=== PATIENT | male | born 1940 | race Caucasian/White ===

== ENCOUNTER 2020-04-26 04:07 | Inpatient (IN) ==
[2020-04-26] MEDS ORDERED: Naloxone 0.4 MG/ML INJ IVP PRN (12:17)
[2020-04-26] MEDS ORDERED: Ondansetron 4 MG/2 ML VIAL IVP PRN (12:17)
[2020-04-26] MEDS ORDERED: 0.9 % Sodium Chloride 250 ML IVC SCH (12:30)
[2020-04-26 14:52] LABS: ABG Base Excess -6 mEq/L (-2 to 3); ABG HCO3 21 mEq/L (21-27); ABG Oxygen Saturation 98 % (95-98); ABG PCO2 45 mmHg (35-45); ABG PH 7.28 pH Units (7.32-7.45); ABG PO2 117 mmHg (85-104); ABG TCO2 22 mEq/L (20-26)
[2020-04-26 16:01] LABS: Basophils % 0.3 %; Eosinophils # 0.1 K/mcL (0.0-0.6); Eosinophils % 0.9 %; Hematocrit 26.2 % (37.5-50.1); Hemoglobin 8.3 g/dL (12.9-16.9); Immature Granulocytes % 1.1 % (0-4); Lymphocytes # 0.3 K/mcL (0.6-4.6); Lymphocytes % 2.4 %; Mean Corpuscular HGB Conc 31.7 g/dL (31.6-35.5); Mean Corpuscular Hemoglobin 29.9 pg (28.0-33.3); Mean Corpuscular Volume 94.2 fL (83.0-100.0); Mean Platelet Volume 9.3 fL (9.4-12.4); Monocytes # 0.4 K/mcL (0.0-1.3); Monocytes % 3.9 %; Neutrophils # 9.5 K/mcL (1.6-8.9); Platelet Count 134 K/mcL (140-400); Red Blood Count 2.78 M/mcL (4.19-5.50); Red Cell Distribution Width 15.9 % (11.5-14.5); Segmented Neutrophils % 91.4 %; White Blood Count 10.4 K/mcL (4.3-11.1)
[2020-04-26 16:29] LABS: INR 1.2; Prothrombin Time 13.9 Seconds (9.4-12.1)
[2020-04-26 16:41] LABS: Alanine Aminotransferase 9 Units/L (7-52); Albumin 2.3 g/dL (3.5-5.7); Albumin/Globulin Ratio 1.5 (1.1-2.2); Alkaline Phosphatase 31 Units/L (34-104); Aspartate Amino Transferase 11 Units/L (13-39); Bilirubin,Total 0.4 mg/dL (0.3-1.0); Blood Urea Nitrogen > 130 mg/dL (8-23); Calcium 8.6 mg/dL (8.6-10.3); Carbon Dioxide 19 mEq/L (23-29); Chloride 108 mEq/L (98-107); Globulin 1.5 g/dL (2.4-3.5); Glucose 118 mg/dL (70-105); Potassium 5.1 mEq/L (3.5-5.1); Sodium 142 mEq/L (136-145); Total Protein 3.8 g/dL (6.4-8.9); eGFR For African Americans 7 (> 60); eGFR For Non-African Americans 6 (> 60)
[2020-04-26 16:55] LABS: Hepatitis B Surface Antibody 7.89 mIU/mL
[2020-04-26 17:06] LABS: Hepatitis B Surface Antigen Nonreactive (Nonreactive)
[2020-04-26 18:32] LABS: RBC,Pleural Fluid < 2000 RBC/mcL
[2020-04-26 18:33] LABS: Lactate Dehydrogenase 158 Units/L (140-271)
[2020-04-26 18:57] LABS: LDH,Pleural Fluid 123 Units/L (No Ref Range); Total Protein,Pleural Fluid < 2.0 g/dL
[2020-04-26] MEDS ORDERED: Perit. Dialysis with Dex 2.5 % 12,000 ML PERITONEAL ONE (19:00)
[2020-04-26 19:43] LABS: Appearance of Pleural Fl Clear (Clear)
[2020-04-26 19:44] LABS: Basophils,Pleural Fluid 0 %
[2020-04-26] MEDS ORDERED: Melatonin 3 MG TABLET PO PRN (20:08)
[2020-04-26] MEDS: carvediloL 6.25 MG TABLET PO SCH (20:49)
[2020-04-26] MEDS: Mirtazapine 15 MG TABLET PO SCH (20:49)
[2020-04-26] MEDS: Pantoprazole 40 MG VIAL IVP SCH (20:49)
[2020-04-26] MEDS: *HR* Digoxin 0.125 MG TABLET PO SCH (20:49)
[2020-04-26] MEDS: rOPINIRole 0.25 MG TABLET PO SCH (20:50)
[2020-04-26] MEDS: traZODone 50 MG TABLET PO SCH (22:49)
[2020-04-26] MEDS: Acetaminophen 325 MG TABLET PO PRN (23:27)
[2020-04-27 03:51] LABS: Hematocrit 27.1 % (37.5-50.1); Hemoglobin 8.8 g/dL (12.9-16.9); Mean Corpuscular HGB Conc 32.5 g/dL (31.6-35.5); Mean Corpuscular Hemoglobin 30.1 pg (28.0-33.3); Mean Corpuscular Volume 92.8 fL (83.0-100.0); Mean Platelet Volume 9.6 fL (9.4-12.4); Platelet Count 137 K/mcL (140-400); Red Blood Count 2.92 M/mcL (4.19-5.50); Red Cell Distribution Width 16.1 % (11.5-14.5); White Blood Count 11.4 K/mcL (4.3-11.1)
[2020-04-27 04:09] LABS: Blood Urea Nitrogen > 130 mg/dL (8-23); Calcium 8.9 mg/dL (8.6-10.3); Carbon Dioxide 19 mEq/L (23-29); Chloride 108 mEq/L (98-107); Glucose 98 mg/dL (70-105); Magnesium 1.9 mg/dL (1.6-2.6); Potassium 5.9 mEq/L (3.5-5.1); Sodium 141 mEq/L (136-145); eGFR For African Americans 7 (> 60); eGFR For Non-African Americans 6 (> 60)
[2020-04-27] MEDS: Pantoprazole 40 MG VIAL IVP SCH ×2 (06:21→17:29)
[2020-04-27] MEDS ORDERED: Insulin Human Regular 10 UNIT in 0.9 % Sodium Chloride 10 ML IV ONE (07:32)
[2020-04-27] MEDS ORDERED: *HR* Propofol 200 MG/20 ML VIAL IVP ONE (07:36)
[2020-04-27] MEDS ORDERED: Lidocaine -MPF 2% 2 ML VIAL ONE (07:38)
[2020-04-27] MEDS ORDERED: *HR* Dextrose 50 % in Water (Vial) 50 ML VIAL IVP ONE (08:00)
[2020-04-27] MEDS: carvediloL 6.25 MG TABLET PO SCH (08:31)
[2020-04-27] MEDS: Calcium Gluconate 1gm/50mL 1 GM/50 ML BAG IVPB SCH ×2 (08:33→09:16)
[2020-04-27] MEDS: SODIUM ZIRCONIUM CYCLOSILICATE 5 GM POWD.PACK PO SCH (09:21)
[2020-04-27] MEDS ORDERED: Perflutren Lipid Microsphere 1.3 ML in 0.9 % Sodium Chloride 8.7 ML IVP PRN (09:53)
[2020-04-27] MEDS ORDERED: Perit. Dialysis with Dex 1.5 % 12,000 ML PERITONEAL ONE (19:00)
[2020-04-27] MEDS: rOPINIRole 0.25 MG TABLET PO SCH (20:46)
[2020-04-27] MEDS: Mirtazapine 15 MG TABLET PO SCH (20:47)
[2020-04-28] MEDS: traZODone 50 MG TABLET PO SCH ×2 (02:53→21:29)
[2020-04-28 05:06] LABS: Basophils % 0.3 %; Eosinophils # 0.2 K/mcL (0.0-0.6); Eosinophils % 1.7 %; Hemoglobin 8.1 g/dL (12.9-16.9); Immature Granulocytes % 1.2 % (0-4); Lymphocytes # 0.2 K/mcL (0.6-4.6); Lymphocytes % 1.5 %; Mean Corpuscular HGB Conc 32.4 g/dL (31.6-35.5); Mean Corpuscular Volume 92.6 fL (83.0-100.0); Mean Platelet Volume 9.8 fL (9.4-12.4); Monocytes # 0.5 K/mcL (0.0-1.3); Monocytes % 4.6 %; Neutrophils # 10.2 K/mcL (1.6-8.9); Platelet Count 169 K/mcL (140-400); Red Cell Distribution Width 15.9 % (11.5-14.5); Segmented Neutrophils % 90.7 %; White Blood Count 11.2 K/mcL (4.3-11.1)
[2020-04-28] MEDS: Pantoprazole 40 MG VIAL IVP SCH ×2 (05:19→17:56)
[2020-04-28 05:23] LABS: Blood Urea Nitrogen > 130 mg/dL (8-23); Calcium 8.1 mg/dL (8.6-10.3); Carbon Dioxide 21 mEq/L (23-29); Chloride 105 mEq/L (98-107); Glucose 142 mg/dL (70-105); Potassium 4.8 mEq/L (3.5-5.1); Sodium 139 mEq/L (136-145); eGFR For African Americans 8 (> 60); eGFR For Non-African Americans 6 (> 60)
[2020-04-28 05:24] LABS: Anisocytosis 1+ (Not Present); Platelet Estimate Normal (Normal)
[2020-04-28] MEDS: SODIUM ZIRCONIUM CYCLOSILICATE 5 GM POWD.PACK PO SCH (09:55)
[2020-04-28] MEDS: Metoprolol XL (24 HR) Succ 25 MG TAB.ER.24H PO SCH (11:49)
[2020-04-28] MEDS ORDERED: Perit. Dialysis with Dex 1.5 % 12,000 ML PERITONEAL ONE (19:00)
[2020-04-28] MEDS: Mirtazapine 15 MG TABLET PO SCH (21:26)
[2020-04-28] MEDS: rOPINIRole 0.25 MG TABLET PO SCH (21:26)
[2020-04-29 05:37] LABS: Hematocrit 23.2 % (37.5-50.1); Hemoglobin 7.2 g/dL (12.9-16.9); Mean Corpuscular Hemoglobin 29.9 pg (28.0-33.3); Mean Corpuscular Volume 96.3 fL (83.0-100.0); Mean Platelet Volume 10.2 fL (9.4-12.4); Platelet Count 164 K/mcL (140-400); Red Blood Count 2.41 M/mcL (4.19-5.50); Red Cell Distribution Width 15.6 % (11.5-14.5); White Blood Count 8.9 K/mcL (4.3-11.1)
[2020-04-29] MEDS: Pantoprazole 40 MG VIAL IVP SCH ×2 (05:48→17:20)
[2020-04-29 06:12] LABS: Blood Urea Nitrogen > 130 mg/dL (8-23); Calcium 7.5 mg/dL (8.6-10.3); Carbon Dioxide 21 mEq/L (23-29); Chloride 102 mEq/L (98-107); Glucose 130 mg/dL (70-105); Potassium 4.3 mEq/L (3.5-5.1); Sodium 139 mEq/L (136-145); eGFR For African Americans 8 (> 60); eGFR For Non-African Americans 7 (> 60)
[2020-04-29] MEDS: SODIUM ZIRCONIUM CYCLOSILICATE 5 GM POWD.PACK PO SCH (07:51)
[2020-04-29] MEDS: Metoprolol XL (24 HR) Succ 25 MG TAB.ER.24H PO SCH (07:51)
[2020-04-29] MEDS ORDERED: Perit. Dialysis with Dex 1.5 % 12,000 ML PERITONEAL ONE (19:00)
[2020-04-29] MEDS: rOPINIRole 0.25 MG TABLET PO SCH (19:48)
[2020-04-29] MEDS: Mirtazapine 15 MG TABLET PO SCH (19:48)
[2020-04-29] MEDS: traZODone 50 MG TABLET PO SCH (19:50)
[2020-04-30 03:44] LABS: Hematocrit 22.3 % (37.5-50.1); Hemoglobin 7.1 g/dL (12.9-16.9); Mean Corpuscular HGB Conc 31.8 g/dL (31.6-35.5); Mean Corpuscular Hemoglobin 30.3 pg (28.0-33.3); Mean Corpuscular Volume 95.3 fL (83.0-100.0); Mean Platelet Volume 9.8 fL (9.4-12.4); Platelet Count 186 K/mcL (140-400); Red Blood Count 2.34 M/mcL (4.19-5.50); Red Cell Distribution Width 15.8 % (11.5-14.5); White Blood Count 7.3 K/mcL (4.3-11.1)
[2020-04-30 04:06] LABS: Blood Urea Nitrogen > 130 mg/dL (8-23); Calcium 7.2 mg/dL (8.6-10.3); Carbon Dioxide 24 mEq/L (23-29); Chloride 101 mEq/L (98-107); Glucose 120 mg/dL (70-105); Potassium 3.7 mEq/L (3.5-5.1); Sodium 138 mEq/L (136-145); eGFR For African Americans 8 (> 60); eGFR For Non-African Americans 7 (> 60)
[2020-04-30] MEDS: Pantoprazole 40 MG VIAL IVP SCH ×2 (05:22→18:55)
[2020-04-30] MEDS: SODIUM ZIRCONIUM CYCLOSILICATE 5 GM POWD.PACK PO SCH (07:55)
[2020-04-30] MEDS: Metoprolol XL (24 HR) Succ 25 MG TAB.ER.24H PO SCH (07:57)
[2020-04-30] MEDS ORDERED: Perit. Dialysis with Dex 1.5 % 12,000 ML PERITONEAL ONE (19:00)
[2020-04-30] MEDS: Mirtazapine 15 MG TABLET PO SCH (21:22)
[2020-04-30] MEDS: rOPINIRole 0.25 MG TABLET PO SCH (21:22)
[2020-04-30] MEDS: traZODone 50 MG TABLET PO SCH (21:22)
[2020-05-01] MEDS: Acetaminophen 325 MG TABLET PO PRN (01:48)
[2020-05-01] MEDS: Pantoprazole 40 MG VIAL IVP SCH ×2 (05:19→17:14)
[2020-05-01 05:27] LABS: Basophils # 0.1 K/mcL (0.0-0.2); Basophils % 0.7 %; Eosinophils # 0.3 K/mcL (0.0-0.6); Eosinophils % 2.8 %; Hematocrit 21.8 % (37.5-50.1); Hemoglobin 6.9 g/dL (12.9-16.9); Immature Granulocytes % 1.7 % (0-4); Lymphocytes # 0.2 K/mcL (0.6-4.6); Lymphocytes % 2.3 %; Mean Corpuscular HGB Conc 31.7 g/dL (31.6-35.5); Mean Corpuscular Hemoglobin 30.4 pg (28.0-33.3); Mean Platelet Volume 10.4 fL (9.4-12.4); Monocytes # 0.7 K/mcL (0.0-1.3); Monocytes % 7.5 %; Neutrophils # 8.3 K/mcL (1.6-8.9); Platelet Count 225 K/mcL (140-400); Red Blood Count 2.27 M/mcL (4.19-5.50); Red Cell Distribution Width 15.9 % (11.5-14.5); White Blood Count 9.8 K/mcL (4.3-11.1)
[2020-05-01 05:52] LABS: Calcium 6.9 mg/dL (8.6-10.3); Potassium 3.8 mEq/L (3.5-5.1)
[2020-05-01 06:08] LABS: Folate 13.5 ng/mL (3.0-16.0)
[2020-05-01] MEDS ORDERED: 0.9 % Sodium Chloride 250 ML IVC SCH (08:45)
[2020-05-01] MEDS: Metoprolol XL (24 HR) Succ 25 MG TAB.ER.24H PO SCH (09:18)
[2020-05-01] MEDS: Piperacillin/Tazobactam 3.375 GM in 0.9 % Sodium Chloride Mini Bag 100 ML IVPB SCH ×2 (10:51→23:26)
[2020-05-01] MEDS ORDERED: Furosemide 40 MG/4 ML VIAL IVP ONE (11:35)
[2020-05-01] MEDS: Albumin 25% 25gram/100mL 25 GM/100 ML IV.SOLN IVC SCH ×2 (17:14→18:54)
[2020-05-01] MEDS ORDERED: Perit. Dialysis with Dex 1.5 % 12,000 ML PERITONEAL ONE (19:00)
[2020-05-01] MEDS: rOPINIRole 0.25 MG TABLET PO SCH (20:47)
[2020-05-01] MEDS: Mirtazapine 15 MG TABLET PO SCH (20:47)
[2020-05-01] MEDS: traZODone 50 MG TABLET PO SCH (20:48)
[2020-05-02 03:30] LABS: Basophils # 0.1 K/mcL (0.0-0.2); Basophils % 0.6 %; Eosinophils # 0.2 K/mcL (0.0-0.6); Eosinophils % 2.5 %; Hemoglobin 7.7 g/dL (12.9-16.9); Immature Granulocytes % 2.4 % (0-4); Lymphocytes # 0.2 K/mcL (0.6-4.6); Lymphocytes % 2.4 %; Mean Corpuscular HGB Conc 32.1 g/dL (31.6-35.5); Mean Corpuscular Hemoglobin 30.6 pg (28.0-33.3); Mean Corpuscular Volume 95.2 fL (83.0-100.0); Monocytes # 0.6 K/mcL (0.0-1.3); Monocytes % 6.7 %; Neutrophils # 7.4 K/mcL (1.6-8.9); Platelet Count 223 K/mcL (140-400); Red Blood Count 2.52 M/mcL (4.19-5.50); Segmented Neutrophils % 85.4 %; White Blood Count 8.7 K/mcL (4.3-11.1)
[2020-05-02 03:42] LABS: Calcium 7.1 mg/dL (8.6-10.3); Potassium 3.7 mEq/L (3.5-5.1)
[2020-05-02] MEDS: Pantoprazole 40 MG VIAL IVP SCH ×2 (06:14→17:05)
[2020-05-02] MEDS: Metoprolol XL (24 HR) Succ 25 MG TAB.ER.24H PO SCH (08:10)
[2020-05-02] MEDS ORDERED: Ferumoxytol 510 MG in 0.9 % Sodium Chloride 100 ML IVPB ONE (11:06)
[2020-05-02] MEDS: Piperacillin/Tazobactam 3.375 GM in 0.9 % Sodium Chloride Mini Bag 100 ML IVPB SCH ×2 (11:25→23:17)
[2020-05-02] MEDS: Acetaminophen 325 MG TABLET PO PRN (14:58)
[2020-05-02] MEDS ORDERED: Ergocalciferol (VIT D2) 50,000 UNIT (1.25MG) CAP PO SCH (18:00)
[2020-05-02] MEDS ORDERED: Perit. Dialysis with Dex 1.5 % 12,000 ML PERITONEAL ONE (19:00)
[2020-05-02] MEDS: Mirtazapine 15 MG TABLET PO SCH (20:42)
[2020-05-02] MEDS: rOPINIRole 0.25 MG TABLET PO SCH (20:42)
[2020-05-02] MEDS: traZODone 50 MG TABLET PO SCH (20:45)
[2020-05-02] MEDS: carvediloL 6.25 MG TABLET PO SCH ×5 (22:57→23:19)
[2020-05-02] MEDS: *HR* Digoxin 0.125 MG TABLET PO SCH ×2 (22:58→23:20)
[2020-05-02] MEDS: SODIUM ZIRCONIUM CYCLOSILICATE 5 GM POWD.PACK PO SCH ×2 (22:59→23:00)
[2020-05-03] MEDS: Pantoprazole 40 MG VIAL IVP SCH ×2 (05:58→18:25)
[2020-05-03 08:43] LABS: Basophils # 0.1 K/mcL (0.0-0.2); Basophils % 0.6 %; Eosinophils # 0.2 K/mcL (0.0-0.6); Hematocrit 28.4 % (37.5-50.1); Hemoglobin 9.1 g/dL (12.9-16.9); Lymphocytes # 0.3 K/mcL (0.6-4.6); Lymphocytes % 2.5 %; Mean Corpuscular Hemoglobin 30.6 pg (28.0-33.3); Mean Corpuscular Volume 95.6 fL (83.0-100.0); Mean Platelet Volume 9.8 fL (9.4-12.4); Monocytes # 0.7 K/mcL (0.0-1.3); Monocytes % 6.6 %; Neutrophils # 8.7 K/mcL (1.6-8.9); Platelet Count 289 K/mcL (140-400); Red Blood Count 2.97 M/mcL (4.19-5.50); Red Cell Distribution Width 16.9 % (11.5-14.5); Segmented Neutrophils % 85.3 %; White Blood Count 10.3 K/mcL (4.3-11.1)
[2020-05-03 09:04] LABS: Calcium 8.3 mg/dL (8.6-10.3); Potassium 3.7 mEq/L (3.5-5.1)
[2020-05-03] MEDS: SODIUM ZIRCONIUM CYCLOSILICATE 5 GM POWD.PACK PO SCH (09:14)
[2020-05-03] MEDS: Metoprolol XL (24 HR) Succ 25 MG TAB.ER.24H PO SCH (09:22)
[2020-05-03] MEDS: Piperacillin/Tazobactam 3.375 GM in 0.9 % Sodium Chloride Mini Bag 100 ML IVPB SCH ×2 (13:40→22:41)
[2020-05-03] MEDS: Acetaminophen 325 MG TABLET PO PRN (16:49)
[2020-05-03] MEDS ORDERED: Perit. Dialysis with Dex 1.5 % 12,000 ML PERITONEAL ONE (19:00)
[2020-05-03] MEDS: traZODone 50 MG TABLET PO SCH (19:53)
[2020-05-03] MEDS: rOPINIRole 0.25 MG TABLET PO SCH (19:53)
[2020-05-03] MEDS: Mirtazapine 15 MG TABLET PO SCH (19:54)
[2020-05-04] MEDS: Pantoprazole 40 MG VIAL IVP SCH ×2 (05:37→17:01)
[2020-05-04 06:22] LABS: Basophils # 0.1 K/mcL (0.0-0.2); Basophils % 0.8 %; Eosinophils # 0.2 K/mcL (0.0-0.6); Hematocrit 27.4 % (37.5-50.1); Hemoglobin 8.7 g/dL (12.9-16.9); Lymphocytes # 0.3 K/mcL (0.6-4.6); Lymphocytes % 2.7 %; Mean Corpuscular HGB Conc 31.8 g/dL (31.6-35.5); Mean Corpuscular Hemoglobin 30.7 pg (28.0-33.3); Mean Corpuscular Volume 96.8 fL (83.0-100.0); Mean Platelet Volume 9.6 fL (9.4-12.4); Monocytes # 0.7 K/mcL (0.0-1.3); Monocytes % 7.1 %; Neutrophils # 8.6 K/mcL (1.6-8.9); Platelet Count 316 K/mcL (140-400); Red Blood Count 2.83 M/mcL (4.19-5.50); Red Cell Distribution Width 16.9 % (11.5-14.5); Segmented Neutrophils % 85.4 %
[2020-05-04] MEDS: Metoprolol XL (24 HR) Succ 25 MG TAB.ER.24H PO SCH (08:57)
[2020-05-04] MEDS: SODIUM ZIRCONIUM CYCLOSILICATE 5 GM POWD.PACK PO SCH (08:57)
[2020-05-04] MEDS: Piperacillin/Tazobactam 3.375 GM in 0.9 % Sodium Chloride Mini Bag 100 ML IVPB SCH (10:01)
[2020-05-04 10:18] LABS: Calcium 7.7 mg/dL (8.6-10.3); Potassium 3.6 mEq/L (3.5-5.1)
[2020-05-04] MEDS: Amoxicillin/Clavulanate 500 MG TABLET PO SCH (17:01)
[2020-05-04] MEDS ORDERED: Perit. Dialysis with Dex 1.5 % 12,000 ML PERITONEAL ONE (19:00)
[2020-05-04] MEDS: Mirtazapine 15 MG TABLET PO SCH (20:39)
[2020-05-04] MEDS: traZODone 50 MG TABLET PO SCH (20:40)
[2020-05-04] MEDS: rOPINIRole 0.25 MG TABLET PO SCH (20:40)
[2020-05-05 04:45] LABS: Basophils # 0.1 K/mcL (0.0-0.2); Basophils % 0.7 %; Eosinophils # 0.2 K/mcL (0.0-0.6); Eosinophils % 2.1 %; Hematocrit 26.7 % (37.5-50.1); Hemoglobin 8.4 g/dL (12.9-16.9); Lymphocytes # 0.2 K/mcL (0.6-4.6); Lymphocytes % 2.5 %; Mean Corpuscular HGB Conc 31.5 g/dL (31.6-35.5); Mean Corpuscular Hemoglobin 30.5 pg (28.0-33.3); Mean Corpuscular Volume 97.1 fL (83.0-100.0); Mean Platelet Volume 9.4 fL (9.4-12.4); Monocytes # 0.7 K/mcL (0.0-1.3); Monocytes % 7.1 %; Neutrophils # 8.1 K/mcL (1.6-8.9); Platelet Count 340 K/mcL (140-400); Red Blood Count 2.75 M/mcL (4.19-5.50); Red Cell Distribution Width 16.6 % (11.5-14.5); Segmented Neutrophils % 85.6 %; White Blood Count 9.5 K/mcL (4.3-11.1)
[2020-05-05 05:03] LABS: Calcium 7.5 mg/dL (8.6-10.3); Potassium 3.4 mEq/L (3.5-5.1)
[2020-05-05] MEDS: Pantoprazole 40 MG VIAL IVP SCH (05:13)
[2020-05-05] MEDS: Metoprolol XL (24 HR) Succ 25 MG TAB.ER.24H PO SCH (09:21)
[2020-05-05] MEDS: SODIUM ZIRCONIUM CYCLOSILICATE 5 GM POWD.PACK PO SCH (09:21)
[2020-05-05] MEDS: Amoxicillin/Clavulanate 500 MG TABLET PO SCH ×2 (09:22→16:52)
[2020-05-05 11:54] LABS: VBG Ionized Calcium 0.99 mmol/L (1.15-1.35)
[2020-05-05] MEDS: Calcium Gluconate 1gm/50mL 1 GM/50 ML BAG IVPB SCH ×2 (15:17→16:29)
[2020-05-05] MEDS ORDERED: Perit. Dialysis with Dex 1.5 % 12,000 ML PERITONEAL ONE (19:00)
[2020-05-05] MEDS: Mirtazapine 15 MG TABLET PO SCH (21:07)
[2020-05-05] MEDS: traZODone 50 MG TABLET PO SCH (21:08)
[2020-05-05] MEDS: rOPINIRole 0.25 MG TABLET PO SCH (21:09)
[2020-05-06] MEDS: Metoprolol XL (24 HR) Succ 25 MG TAB.ER.24H PO SCH (08:08)
[2020-05-06] MEDS: Amoxicillin/Clavulanate 500 MG TABLET PO SCH (08:08)
[2020-05-06 11:15] VITALS: BP 120/69
[2020-05-06] MEDS ORDERED: Gentamicin Oint 15 GM TUBE TP SCH (19:00)
== END 2020-05-06 16:24 | DRG 280 ==
LOC: 2NNU → SUATTDRO 11:58 → 2ANU 05-02 18:55
PROVIDERS: ADMIT Internal Medicine; ATTEND Internal Medicine